=== PATIENT | male | born 1975 | race Caucasian/White ===

== ENCOUNTER 2016-06-30 21:46 | Emergency (ER) | payer MEDICAID ==
[~2016-06-30] VITALS: Ht 175.3 cm; Wt 77.3 kg
[~2016-06-30 21:46] MED LIST: CYAN10002 IM; CYAN250013 PO; ONDA-39 PO; OXYC-223 PO; OXYC5SOL8 PO; POLY17PO5 PO; SUMA100T3 PO
[2016-06-30] MEDS ORDERED: BUPIVACAINE/PF-EPI 0.25% 1:200K SQ ONE (22:30)
[2016-06-30] MEDS ORDERED: LIDOCAINE 1%, 20ML SQ ONE (22:30)
[2016-06-30] MEDS ORDERED: LIDOCAINE 1%, 20ML ONE (22:33)
[2016-06-30] MEDS ORDERED: BUPIVACAINE 0.25% ONE (22:33)
[2016-06-30 23:31] VITALS: BP 109/70
== END 2016-06-30 23:33 | disposition home or self-care (01) ==
LOC: ED 23:27
DX: K04.7 Periapical abscess without sinus (principal); K02.9 Dental caries, unspecified; Z90.89 Acquired absence of other organs
CPT/HCPCS: 64400